=== PATIENT | male | born 1975 | race African-American/Black ===

== ENCOUNTER 2020-04-10 23:16 | Emergency (ER) | payer BC ==
[~2020-04-10] VITALS: Ht 185.4 cm; Wt 99.0 kg
[2020-04-11] MEDS ORDERED: HYDROCODONE/ACETAMINOPHEN 5/325MG TABLET PO ONE (00:45)
[2020-04-11 01:06] LABS: CHLORIDE 106 mEq/L (98-107)
[2020-04-11 01:08] LABS: BASOPHILS % 0.6 % (0.0-2.0); EOSINOPHILS % 0.6 % (0.0-5.0); HEMATOCRIT. 45.2 % (42.0-52.0); HEMOGLOBIN. 15.2 g/dL (14.0-18.0); LYMPHOCYTES % 22.3 % (20.0-50.0); MEAN CORPUSCULAR HEMOGLOBIN 29.9 pg (28.0-32.0); MEAN CORPUSCULAR VOLUME 89.3 fL (80.0-94.0); MEAN PLATELET VOLUME 7.4 fl (7.4-10.4); MONOCYTES % 9.3 % (2.0-8.0); NEUTROPHILS % 67.2 % (40.0-76.0); PLATELET 242 x1000/uL (130-400); RED BLOOD CELL COUNT 5.06 mill/uL (4.7-6.1); RED CELL DISTRIBUTION WIDTH 13.8 % (11.6-14.6)
[2020-04-11 02:22] VITALS: BP 138/70
== END 2020-04-11 02:23 | disposition home or self-care (01) ==
LOC: ER 23:53
DX: R10.11 Right upper quadrant pain (principal); K76.0 Fatty (change of) liver, not elsewhere classified; Z88.6 Allergy status to analgesic agent
CPT/HCPCS: 36415; 76705; 80053; 85025; 99284

== ENCOUNTER 2020-05-22 01:31 | Emergency (ER) | payer BC ==
[~2020-05-22] VITALS: Ht 182.9 cm; Wt 100.0 kg
[2020-05-22 04:10] LABS: BASOPHILS % 0.6 % (0.0-2.0); EOSINOPHILS % 0.5 % (0.0-5.0); HEMATOCRIT. 46.8 % (42.0-52.0); LYMPHOCYTES % 13.5 % (20.0-50.0); MEAN CORPUSCULAR HEMOGLOBIN 30.6 pg (28.0-32.0); MEAN CORPUSCULAR VOLUME 89.4 fL (80.0-94.0); MEAN PLATELET VOLUME 7.8 fl (7.4-10.4); MONOCYTES % 7.3 % (2.0-8.0); NEUTROPHILS % 78.1 % (40.0-76.0); PLATELET 256 x1000/uL (130-400); RED BLOOD CELL COUNT 5.23 mill/uL (4.7-6.1); RED CELL DISTRIBUTION WIDTH 13.8 % (11.6-14.6)
[2020-05-22 04:11] LABS: CHLORIDE 106 mEq/L (98-107)
[2020-05-22 04:20] LABS: CLARITY URINE CLEAR (CLEAR); COLOR URINE YELLOW (YELLOW); KETONES URINE NEGATIVE (NEGATIVE); LEUKOCYTE ESTERASE URINE NEGATIVE (NEGATIVE); NITRITE URINE NEGATIVE (NEGATIVE); OCCULT BLOOD URINE NEGATIVE (NEGATIVE); PH URINE 5.5 (4.5-8.0); PROTEIN URINE TRACE (NEGATIVE); SPECIFIC GRAVITY URINE 1.025 (1.005-1.030)
[2020-05-22 05:30] VITALS: BP 122/72
[2020-05-22] MEDS ORDERED: KETOROLAC 15MG/ML VIAL IV ONE (05:45)
== END 2020-05-22 05:55 | disposition home or self-care (01) ==
LOC: ER 01:31
DX: R10.11 Right upper quadrant pain (principal); Z88.6 Allergy status to analgesic agent; Z98.890 Other specified postprocedural states
CPT/HCPCS: 36415; 76705; 80053; 81003; 85025; 99284; J1885

== ENCOUNTER 2022-11-26 00:31 | Emergency (ER) | payer BC ==
[~2022-11-26] VITALS: Ht 182.9 cm; Wt 99.0 kg
[2022-11-26 00:42] VITALS: BP 148/81
== END 2022-11-26 03:14 | disposition left against medical advice (07) ==
LOC: ER 00:31
DX: Z53.21 Procedure and treatment not carried out due to patient leaving prior to being seen by health care provider (principal); Z79.82 Long term (current) use of aspirin
CPT/HCPCS: 93005

== ENCOUNTER 2023-10-21 22:05 | Emergency (ER) | payer BC ==
[~2023-10-21] VITALS: Ht 182.9 cm; Wt 100.0 kg
[2023-10-21 22:12] VITALS: O2SAT 96
[2023-10-21] MEDS ORDERED: ACETAMINOPHEN 325MG TABLET PO STA (23:23)
[2023-10-21] MEDS ORDERED: SODIUM CHLORIDE 0.9% 1,000 ML IV ONE (23:45)
[2023-10-21 23:57] LABS: HEMATOCRIT. 50.3 % (42.0-52.0); HEMOGLOBIN. 16.7 g/dL (14.0-18.0); MEAN CORPUSCULAR HEMOGLOBIN 30.6 pg (28.0-32.0); MEAN CORPUSCULAR HGB CONC 33.2 g/dL (31.0-37.0); MEAN CORPUSCULAR VOLUME 92.2 fL (80.0-94.0); MEAN PLATELET VOLUME 7.4 fl (7.4-10.4); PLATELET 242 x1000/uL (130-400); RED BLOOD CELL COUNT 5.46 mill/uL (4.7-6.1); RED CELL DISTRIBUTION WIDTH 13.5 % (11.6-14.6); WHITE BLOOD COUNT 10.3 x1000/uL (4.5-11.0)
[2023-10-22] LABS: DIFFERENTIAL COMMENT 1
[2023-10-22 01:25] LABS: ALANINE AMINOTRANSFERASE 84 IU/L (10-49); ALBUMIN 4.7 g/dL (3.2-4.8); ASPARTATE AMINOTRANSFERASE 61 IU/L (<34); CALCIUM 9.4 mg/dL (8.7-10.4); CARBON DIOXIDE 23 mEq/L (21-32); CHLORIDE 105 mEq/L (98-107); CREATININE 1.5 mg/dL (0.6-1.3); GLUCOSE 95 mg/dL (70-105); POTASSIUM 3.9 mEq/L (3.5-5.1); PROTEIN TOTAL 8.2 g/dL (6.0-8.3); SODIUM 138 mEq/L (136-145); UREA NITROGEN BLOOD 16 mg/dL (9-23)
[2023-10-22 01:27] LABS: ETHANOL BLOOD < 10 mg/dL (<10)
[2023-10-22] MEDS ORDERED: ACETAMINOPHEN 325MG TABLET PO NR (01:45)
[2023-10-22 01:47] LABS: PLATELET ESTIMATE NORMAL
[2023-10-22 04:05] LABS: CLARITY URINE CLEAR (CLEAR); COLOR URINE YELLOW (YELLOW); GLUCOSE URINE NEGATIVE (NEGATIVE); KETONES URINE NEGATIVE (NEGATIVE); LEUKOCYTE ESTERASE URINE NEGATIVE (NEGATIVE); NITRITE URINE NEGATIVE (NEGATIVE); OCCULT BLOOD URINE NEGATIVE (NEGATIVE); PROTEIN URINE 1+ (NEGATIVE); SPECIFIC GRAVITY URINE 1.026 (1.005-1.030); UROBILINOGEN URINE 0.2 E.U./dL (0.2-1.0)
[2023-10-22 04:09] LABS: BACTERIA URINE NONE SEEN; RBC URINE NONE SEEN /hpf (0-2); SQUAMOUS EPITHELIAL CELL URINE NONE SEEN /lpf (RARE/1+); WBC URINE NONE SEEN /hpf (0-2); YEAST URINE NONE SEEN
[2023-10-22 04:32] LABS: URIC ACID CRYSTALS URINE 3+ /lpf
[2023-10-22 05:13] VITALS: BP 108/64; PULSE 100; RESP 16; TEMP 98.1
[2023-10-22 08:30] LABS: *AMPHETAMINES SCREEN URINE NEGATIVE (NEGATIVE); *BARBITURATES SCREEN URINE NEGATIVE (NEGATIVE); *BENZODIAZEPINES SCREEN URINE NEGATIVE (NEGATIVE); *COCAINE SCREEN URINE NEGATIVE (NEGATIVE); CANNABINOID URINE SCREEN NEGATIVE (NEGATIVE); ECSTASY MDMA SCREEN URINE NEGATIVE (NEGATIVE); METHADONE URINE SCREEN Neg (NEGATIVE); OPIATES URINE SCREEN NEGATIVE (NEGATIVE); PHENCYCLIDINE URINE SCREEN NEGATIVE (NEGATIVE)
== END 2023-10-22 05:14 | disposition home or self-care (01) ==
LOC: ER 22:05
DX: R19.7 Diarrhea, unspecified (principal); E86.0 Dehydration; Z88.8 Allergy status to other drugs, medicaments and biological substances; Z20.822 Contact with and (suspected) exposure to COVID-19
CPT/HCPCS: 80053; 80320; 85025; 36415; 99283; 80305; 81003; 96360; 87426; J7030; C9803; Z7610 ×2; G0480

== ENCOUNTER 2024-07-14 14:49 | Emergency (ER) | payer BC ==
[~2024-07-14] VITALS: Ht 182.9 cm; Wt 100.0 kg
[2024-07-14 14:57] VITALS: O2SAT 95
[2024-07-14] MEDS ORDERED: SODIUM CHLORIDE 0.9% 1,000 ML IV ONE (15:15)
[2024-07-14 15:48] LABS: HEMATOCRIT. 48.5 % (42.0-52.0); HEMOGLOBIN. 15.8 g/dL (14.0-18.0); MEAN CORPUSCULAR HEMOGLOBIN 29.7 pg (28.0-32.0); MEAN CORPUSCULAR HGB CONC 32.6 g/dL (31.0-37.0); MEAN CORPUSCULAR VOLUME 91.2 fL (80.0-94.0); MEAN PLATELET VOLUME 7.6 fl (7.4-10.4); PLATELET 214 x1000/uL (130-400); RED BLOOD CELL COUNT 5.32 mill/uL (4.7-6.1); RED CELL DISTRIBUTION WIDTH 13.8 % (11.6-14.6); WHITE BLOOD COUNT 7.1 x1000/uL (4.5-11.0)
[2024-07-14 15:49] LABS: DIFFERENTIAL COMMENT 1
[2024-07-14 15:52] LABS: CHLORIDE 103 mEq/L (98-107); POTASSIUM 4.2 mEq/L (3.5-5.1); SODIUM 136 mEq/L (136-145)
[2024-07-14 15:53] LABS: CARBON DIOXIDE 25 mEq/L (21-32)
[2024-07-14 15:54] LABS: CALCIUM 9.3 mg/dL (8.7-10.4)
[2024-07-14 15:58] LABS: CREATININE 1.6 mg/dL (0.6-1.3)
[2024-07-14 15:59] LABS: GLUCOSE 93 mg/dL (70-105); TROPONIN I HIGH SENSITIVITY 7 ng/L (3.0-53); UREA NITROGEN BLOOD 18 mg/dL (9-23)
[2024-07-14 16:05] LABS: PROTHROMBIN TIME 11.4 sec (9.6-11.0)
[2024-07-14 16:18] LABS: PLATELET ESTIMATE NORMAL
[2024-07-14 18:20] LABS: TROPONIN I HIGH SENSITIVITY < 4 ng/L (3.0-53)
[2024-07-14 20:29] LABS: CLARITY URINE CLEAR (CLEAR); COLOR URINE YELLOW (YELLOW); GLUCOSE URINE NEGATIVE (NEGATIVE); KETONES URINE NEGATIVE (NEGATIVE); LEUKOCYTE ESTERASE URINE NEGATIVE (NEGATIVE); NITRITE URINE NEGATIVE (NEGATIVE); OCCULT BLOOD URINE NEGATIVE (NEGATIVE); PH URINE 5.5 (4.5-8.0); PROTEIN URINE TRACE (NEGATIVE); UROBILINOGEN URINE 0.2 E.U./dL (0.2-1.0)
[2024-07-14 21:20] VITALS: BP 115/76; PULSE 98; RESP 16; TEMP 36.89184; O2SAT 95
[2024-07-14 21:27] LABS: BACTERIA URINE NONE SEEN; RBC URINE NONE SEEN /hpf (0-2); SQUAMOUS EPITHELIAL CELL URINE NONE SEEN /lpf (RARE/1+); URIC ACID CRYSTALS URINE 2+ /lpf; WBC URINE NONE SEEN /hpf (0-2)
== END 2024-07-14 21:27 | disposition home or self-care (01) ==
LOC: ER 14:49
DX: R55 Syncope and collapse (principal); Z88.6 Allergy status to analgesic agent
CPT/HCPCS: 99285; 70450; 71045; 80048; 81003; 83880; 85025; 85610; 84484; 36415; 93005; J7030

== ENCOUNTER 2025-06-22 07:50 | Emergency (ER) | payer BC ==
[~2025-06-22] VITALS: Ht 180.3 cm; Wt 100.0 kg
[2025-06-22 08:12] VITALS: TEMP 36.9; O2SAT 99
[2025-06-22 09:53] VITALS: BP 146/69; PULSE 54; RESP 16; O2SAT 100
== END 2025-06-22 10:01 | disposition home or self-care (01) ==
LOC: ER 07:50
DX: M67.432 Ganglion, left wrist (principal); Z88.6 Allergy status to analgesic agent
CPT/HCPCS: 73130; 99283